=== PATIENT | female | born 1970 | race Caucasian/White ===

== ENCOUNTER 2017-07-23 03:03 | Emergency (ER) | payer SELFPAY ==
[~2017-07-23] VITALS: Ht 152.4 cm; Wt 68.0 kg
[2017-07-23 04:36] LABS: CLARITY URINE CLOUDY (CLEAR); COLOR URINE RED (YELLOW); GLUCOSE URINE NEGATIVE (NEGATIVE); KETONES URINE NEGATIVE (NEGATIVE); LEUKOCYTE ESTERASE URINE 1+ (NEGATIVE); NITRITE URINE NEGATIVE (NEGATIVE); OCCULT BLOOD URINE 3+ (NEGATIVE); PROTEIN URINE 2+ (NEGATIVE); SPECIFIC GRAVITY URINE 1.012 (1.005-1.030); UROBILINOGEN URINE 0.2 E.U./dL (0.2-1.0)
[2017-07-23] MEDS ORDERED: KETOROLAC 60MG/2ML VIAL IM STA (06:33)
[2017-07-23 07:11] LABS: BASOPHILS % 0.3 % (0.0-2.0); HEMATOCRIT. 38.3 % (36.0-48.0); HEMOGLOBIN. 13.4 g/dL (12.0-16.0); LYMPHOCYTES % 19.5 % (20.0-50.0); MEAN CORPUSCULAR VOLUME 88.9 fL (81.0-99.0); MEAN PLATELET VOLUME 7.6 fl (7.4-10.4); MONOCYTES % 5.4 % (2.0-8.0); NEUTROPHILS % 72.8 % (40.0-76.0); PLATELET 223 x1000/uL (130-400); RED BLOOD CELL COUNT 4.31 mill/uL (4.2-5.4); RED CELL DISTRIBUTION WIDTH 13.6 % (11.6-14.6)
[2017-07-23 07:22] LABS: CARBON DIOXIDE 27 mEq/L (21-32); CHLORIDE 105 mEq/L (98-107)
[2017-07-23 07:23] LABS: HCG SCREEN NEGATIVE
[2017-07-23 09:05] VITALS: BP 128/74
== END 2017-07-23 09:36 | disposition home or self-care (01) ==
LOC: ER 03:03
DX: N39.0 Urinary tract infection, site not specified (principal); K76.0 Fatty (change of) liver, not elsewhere classified; F17.210 Nicotine dependence, cigarettes, uncomplicated
CPT/HCPCS: 36415; 71010; 76705; 80053; 81001; 83690; 84703; 85025; 96372; 99285; J1885

== ENCOUNTER 2023-12-07 11:36 | Emergency (ER) | payer MEDICAID ==
[~2023-12-07] VITALS: Ht 157.5 cm; Wt 81.0 kg
[2023-12-07 11:42] VITALS: TEMP 98.2; O2SAT 98
[2023-12-07] MEDS ORDERED: IBUPROFEN 800MG TABLET PO ONE (14:00)
[2023-12-07 15:43] VITALS: BP 156/81; PULSE 77; RESP 16
== END 2023-12-07 16:40 | disposition home or self-care (01) ==
LOC: ER 11:36
DX: S93.401A Sprain of unspecified ligament of right ankle, initial encounter (principal); S83.92XA Sprain of unspecified site of left knee, initial encounter; W18.39XA Other fall on same level, initial encounter; Y93.89 Activity, other specified; Y92.89 Other specified places as the place of occurrence of the external cause; Y99.8 Other external cause status
CPT/HCPCS: 73560; 73610; 99284; Z7610 ×2

== ENCOUNTER 2024-06-13 11:30 | Emergency (ER) | payer MEDICAID, OTHER ==
[~2024-06-13] VITALS: Ht 154.9 cm; Wt 77.0 kg
[2024-06-13 11:36] VITALS: O2SAT 97
[2024-06-13] MEDS ORDERED: DICYCLOMINE 10 MG/5 ML ORAL SYR PO STA (11:52)
[2024-06-13 12:11] LABS: BASOPHILS % 0.2 % (0.0-2.0); EOSINOPHILS % 2.6 % (0.0-5.0); HEMATOCRIT. 38.9 % (36.0-48.0); HEMOGLOBIN. 13.2 g/dL (12.0-16.0); LYMPHOCYTES % 20.9 % (20.0-50.0); MEAN CORPUSCULAR HEMOGLOBIN 30.1 pg (28.0-32.0); MEAN CORPUSCULAR HGB CONC 33.8 g/dL (31.0-37.0); MEAN CORPUSCULAR VOLUME 88.9 fL (81.0-99.0); MEAN PLATELET VOLUME 7.8 fl (7.4-10.4); MONOCYTES % 7.4 % (2.0-8.0); NEUTROPHILS % 68.9 % (40.0-76.0); PLATELET 247 x1000/uL (130-400); RED BLOOD CELL COUNT 4.38 mill/uL (4.2-5.4); WHITE BLOOD COUNT 8.6 x1000/uL (4.5-11.0)
[2024-06-13 12:13] LABS: CARBON DIOXIDE 33 mEq/L (21-32); CHLORIDE 97 mEq/L (98-107); SODIUM 137 mEq/L (136-145)
[2024-06-13 12:14] LABS: CALCIUM 9.8 mg/dL (8.7-10.4)
[2024-06-13 12:18] LABS: CREATININE 0.9 mg/dL (0.6-1.0)
[2024-06-13 12:19] LABS: GLUCOSE 120 mg/dL (70-105); UREA NITROGEN BLOOD 8 mg/dL (9-23)
[2024-06-13] MEDS: DICYCLOMINE HCL 10MG CAPSULE PO NR (12:31)
[2024-06-13] MEDS: MAGNESIUM/ALUMINUM HYDROXIDE/SIMETHICONE 30ML UDC PO STA (12:31)
[2024-06-13 12:38] LABS: CLARITY URINE CLEAR (CLEAR); COLOR URINE DARK YELLOW (YELLOW); GLUCOSE URINE NEGATIVE (NEGATIVE); KETONES URINE TRACE (NEGATIVE); LEUKOCYTE ESTERASE URINE TRACE (NEGATIVE); NITRITE URINE NEGATIVE (NEGATIVE); OCCULT BLOOD URINE NEGATIVE (NEGATIVE); PH URINE 6.5 (4.5-8.0); PROTEIN URINE 2+ (NEGATIVE); SPECIFIC GRAVITY URINE 1.026 (1.005-1.030)
[2024-06-13 13:02] LABS: RBC URINE 0-2 /hpf (0-2); SQUAMOUS EPITHELIAL CELL URINE 3+ /lpf (RARE/1+); WBC URINE 0-2 /hpf (0-2)
[2024-06-13 13:03] LABS: BACTERIA URINE 2+
[2024-06-13] MEDS ORDERED: T3 PO (13:22)
[2024-06-13] MEDS: POTASSIUM CHLORIDE 20MEQ/PACKET PO ONE (13:32)
[2024-06-13 13:43] VITALS: BP 155/99; PULSE 62; RESP 20; TEMP 98
== END 2024-06-13 13:55 | disposition home or self-care (01) ==
LOC: ER 11:59
DX: K85.90 Acute pancreatitis without necrosis or infection, unspecified (principal); Z98.890 Other specified postprocedural states
CPT/HCPCS: 36415; 74176; 80048; 81003; 81025; 85025; 93005; 99284